=== PATIENT | male | born 2000 | race Caucasian/White ===

== ENCOUNTER 2023-09-14 21:12 | Emergency (ER) | payer BC, SELFPAY ==
[2023-09-14 21:14] VITALS: BP 144/78
[2023-09-14 21:50] VITALS: BP 136/59; BMI 23.8
--- NOTE | 2023-09-14 22:12 | ED.MUSCINJ ---
HPI-Injury
<Max Us MD, Resident - Last Filed: 09/14/23 22:30>
General
Chief Complaint: Musculo-Skeletal Complaint
Time Seen by Provider: 09/14/23 22:00
History of Present Illness-Injury
Initial Injury comments:
23-year-old presents to the ED with and right ankle injury. She he is visiting with family and friends in [place] but is originally from [place]. The patient is accompanied by her family. He reports that he twisted his ankle while jumping
into a hot pool and landed on it awkwardly. He is currently unable to bear weight on the injured ankle.
Review of Systems
<Max Us MD, Resident - Last Filed: 09/14/23 22:30>
Review of Systems
Musculoskeletal: Reports other (right ankle injury )
Musculoskeletal Injury Exam
<Max Us MD, Resident - Last Filed: 09/14/23 22:30>
Musculoskeletal Injury Exam
Right Ankle:
Pain with Movement?: Mild
Tender to palpation?: Mild (point tenderness on anterior talofibular ligament)
Soft tissue swelling?: Moderate (2+ swelling on right ankle laterally )
External deformity and angulation?: None
Joint effusion?: Moderate
Contusion?: None
Hematoma-local bleeding into tissue?: None
Crepitus with movement?: No
Joint instability?: No
Malalignment/deformity?: No
Range of motion: Limited (with flexion/extension/internal and external rotation)
Distal skin color and temperature: normal-warm & good color
Capillary Refill: normal
Normal distal neurovascular exam?: Yes
Phy Exam
<Max Us MD, Resident - Last Filed: 09/14/23 22:30>
General Physical Exam
General Presentation: well appearing
Injury Course
<Max Us MD, Resident - Last Filed: 09/14/23 22:30>
Orders/Labs/Results
Orders:
Orders
09/14/23 21:20
Ankle, Right 3 view CR [CR Ankle - Right Min 3 Views *] Urgent
Comment:
Reason For Exam: ankle injury with swelling
09/14/23 22:22
Splints/Slings/Crut- Treatment ONCE
Crutches: Yes
Ibuprofen [Motrin] 600 mg PO NOW STA
<Milan Morrell, DO - Last Filed: 09/14/23 22:30>
Orders/Labs/Results
Orders:
Orders
09/14/23 21:20
Ankle, Right 3 view CR [CR Ankle - Right Min 3 Views *] Urgent
Comment:
Reason For Exam: ankle injury with swelling
09/14/23 22:22
Splints/Slings/Crut- Treatment ONCE
Crutches: Yes
Ibuprofen [Motrin] 600 mg PO NOW STA
Procedures
<Milan Morrell, DO - Last Filed: 09/14/23 22:30>
Splinting/Sling Placement
Right Ankle:
Procedure completed by: rn
Type of splint: aircast
Splint checked by provider?: No
<Max Us MD, Resident - Last Filed: 09/14/23 22:30>
*Critical Care Note
Total Time (30-74mins, 75-104mins- exclusive of procedures): Not Applicable
<Milan Morrell, DO - Last Filed: 09/14/23 22:30>
*Radiology
Radiology exam reviewed: preliminary read by ED provider
*Pulse Oximetry
Patient hypoxic: no
*Critical Care Note
Total Time (30-74mins, 75-104mins- exclusive of procedures): Not Applicable
<Max Us MD, Resident - Last Filed: 09/14/23 22:30>
Update Note
Update Note:
23-year-old male presented to the ED with right ankle injury. Patient cannot bear weight, x-ray of the right foot and ankle.
X-ray shows no fractures. Suspect ankle sprain/ligament tear. Advised patient for rest, ice, compression, as needed NSAIDs. Patient can follow-up with orthopedist or family doctor. Ankle brace would be helpful.
ED Attending Note
<Max Us MD, Resident - Last Filed: 09/14/23 22:30>
-
Portions of this chart may have been created with voice recognition software.� Occasional wrong word or��sound alike� substitutions may have occurred due to the inherent limitations of voice recognition software.
<Milan Morrell, - Last Filed: 09/14/23 22:30>
ED Attending Note
Patient seen and examined by attending physician: Yes
I performed a history and physical exam of patient and discussed management with resident, I reviewed resident's note and agree with documented findings and plan of care.: Yes
ED Attending Note:
Seen with resident agree with assessment plan right lateral malleolus pain status post inversion injury x-ray noted plan will be crutches ankle stirrup brace reviewed with patient and family
Discharge Plan
Interventions
Interventions:
*Risk Screen - Suicide Last Done: 09/14/23 21:51
*General Assessment Last Done: 09/14/23 21:51
*Neglect/Abuse Screening Last Done: 09/14/23 21:51
ED- Fall Risk Assessment Last Done: 09/14/23 21:51
*ED COVID-19 Vaccine History Last Done: 09/14/23 21:51
ED-Musculoskeletal Assessment Last Done: 09/14/23 21:51
Discharge Date and Time
Print Language: SLOVAK
[2023-09-14] MEDS: MOTRIN 600 MG PO (22:33)
== END 2023-09-14 22:32 | disposition home or self-care (01) ==
LOC: EMR 21:12
PROVIDERS: EMERGENCY PHYSICIAN Emergency Medicine
DX: S99.911A Unspecified injury of right ankle, initial encounter (principal); X50.1XXA Overexertion from prolonged static or awkward postures, initial encounter; Y93.39 Activity, other involving climbing, rappelling and jumping off; Y92.34 Swimming pool (public) as the place of occurrence of the external cause
CPT/HCPCS: 99283; 29515; 73610